=== PATIENT | female | born 1960 | race Caucasian/White ===

== ENCOUNTER 2023-11-29 21:53 | Emergency (ER) | payer OTHER, MEDICAID ==
[~2023-11-29] VITALS: Ht 162.6 cm; Wt 69.0 kg
[2023-11-29 22:07] VITALS: O2SAT 95
[2023-11-29] MEDS: ACETAMINOPHEN 325MG TABLET PO STA (23:59)
[2023-11-30] MEDS: SODIUM CHLORIDE 0.9% 1,000 ML IV ONE
[2023-11-30] MEDS: DIPHENHYDRAMINE 50MG/ML VIAL IV ONE
[2023-11-30 00:04] LABS: HEMATOCRIT. 37.6 % (36.0-48.0); HEMOGLOBIN. 12.3 g/dL (12.0-16.0); MEAN CORPUSCULAR HEMOGLOBIN 30.8 pg (28.0-32.0); MEAN CORPUSCULAR HGB CONC 32.8 g/dL (31.0-37.0); MEAN PLATELET VOLUME 7.6 fl (7.4-10.4); PLATELET 235 x1000/uL (130-400); RED CELL DISTRIBUTION WIDTH 14.6 % (11.6-14.6); WHITE BLOOD COUNT 10.9 x1000/uL (4.5-11.0)
[2023-11-30 00:08] LABS: CHLORIDE 103 mEq/L (98-107); POTASSIUM 3.7 mEq/L (3.5-5.1); SODIUM 135 mEq/L (136-145)
[2023-11-30 00:09] LABS: CARBON DIOXIDE 27 mEq/L (21-32)
[2023-11-30 00:14] LABS: CREATININE 0.8 mg/dL (0.6-1.0); GLUCOSE 164 mg/dL (70-105); UREA NITROGEN BLOOD 18 mg/dL (9-23)
[2023-11-30 00:55] LABS: DIFFERENTIAL COMMENT 1
[2023-11-30] MEDS: LEVETIRACETAM 1000MG PREMIX 100 ML IV ONE (01:50)
[2023-11-30 02:13] LABS: PLATELET ESTIMATE NORMAL
[2023-11-30 02:31] VITALS: PULSE 93; RESP 18; TEMP 98.5
[2023-11-30 02:42] VITALS: BP 134/59
[2023-11-30] MEDS: LABETALOL 5MG/ML 4ML INJ IV ONE (02:42)
[2023-11-30] MEDS ORDERED: IOHEXOL-350 100 ML BOTTLE ONE (05:16)
== END 2023-11-30 02:45 | disposition short-term general hospital (02) ==
LOC: ER 21:53
DX: I60.9 Nontraumatic subarachnoid hemorrhage, unspecified (principal); I10 Essential (primary) hypertension; F19.90 Other psychoactive substance use, unspecified, uncomplicated; Z88.0 Allergy status to penicillin
CPT/HCPCS: 99285; 71045; 80048; 85025; 36415; 70496; 96365; 96361; 96375; 70450; J1200; J7030; Q9967; J1953; J3490